=== PATIENT | female | born 1980 ===

== ENCOUNTER → 2018-02-20 | Outpatient (REF) | payer OTHER | PROVIDERS: ATTEND Family Medicine | DX: R10.2 Pelvic and perineal pain (principal) | CPT/HCPCS: 81001 ==

== ENCOUNTER → 2018-04-28 | Outpatient (CLI) | payer OTHER ==
[~2018-04-28] MED LIST: PREN-127 PO
[2018-04-28 10:06] LABS: PLATELET COUNT, AUTOMATED 193 K/uL (150-450)
== END ==
LOC: LAB 08:50
PROVIDERS: ATTEND Advanced Practice Midwife
DX: O09.521 Supervision of elderly multigravida, first trimester (principal); R82.79 Other abnormal findings on microbiological examination of urine
CPT/HCPCS: 36415; 81001; 85025; 86592; 86703; 86762; 86787; 86850; 86900; 86901; 87088; 87340

== ENCOUNTER → 2018-05-08 | Outpatient (CLI) | payer OTHER | LOC: LAB 07:52 | PROVIDERS: ATTEND Student in an Organized Health Care Education/Training Program | DX: O09.521 Supervision of elderly multigravida, first trimester (principal) | CPT/HCPCS: 87491; 87591 ==

== ENCOUNTER → 2018-07-27 | Outpatient (CLI) | payer OTHER ==
[~2018-07-27] MED LIST changes: +CLOB15OI16 TP
--- NOTE | 2018-07-27 15:47 | RADIOLOGY IMAGING REPORT ---
[facility] PATIENT NAME: Lana Issa : 1980 MR: [id number] V: [id number] EXAM DATE: ORDERING PHYSICIAN: JOLENE CERDA TECHNOLOGIST: [place] [facility] [place] Issa : 1980 Visit/Account:[id number] Date of Sevice: 07/27/2018 EXAMINATION: Transabdominal OB Ultrasound >14 wks with Anatomic Survey 07/27/2018 10:45 AM History: anatomical KAE 12/17/18 COMPARISON: None FINDINGS: Intrauterine gestations: one presentation: Variable heart rate: 160 bpm Amniotic fluid index: 11.5 cm Largest amniotic fluid pocket 3.5 cm Placenta: Posterior without previa. Placental cord insertion is normal. Uterus: gravid, otherwise normal Maternal adnexa: negative Cervix: closed Gestational Parameters: BPD: 4.3 cm 19 weeks 1 day, 30th percentile HC: 16.5 cm 19 weeks 2 days, 26th percentile AC: 13.8 cm 19 weeks 2 days, 34th percentile FL: 3.0 cm 19 weeks 3 days, 34th percentile Average ultrasound age (AUA): 19 weeks 2 days Estimated gestational age by LMP: 19 weeks 4 days Estimated weight (EFW): 284 grams +/- 42 grams EFW for LMP percentile: 29 Anatomic Survey: Intracranial structures, nose and lips, 4-chamber heart and outflow tracts, stomach, kidneys, urinary bladder, spine, 3-vessel cord and cord insertion are unremarkable. Two upper and two lower extremiti es visualized. IMPRESSION: 1. Single live intrauterine gestation; estimated ultrasound age 19 weeks 2 days (KAE 12/19/2018) whic h correlates well with expected dates.. 2. Unremarkable anatomic survey. Report Dictated By: Bora Smith MD at 07/27/2018 3:38 PM Report E-Signed By: Bora Smith MD at 07/27/2018 3:41 PM WSN:JOSE J
== END ==
LOC: RAD 07:53
PROVIDERS: ATTEND Obstetrics & Gynecology
DX: Z02.9 Encounter for administrative examinations, unspecified (principal)

== ENCOUNTER → 2018-09-20 | Outpatient (CLI) | payer OTHER ==
[~2018-09-20] MED LIST changes: +DIPH0.5S2 IM
[2018-09-20 10:42] LABS: PLATELET COUNT, AUTOMATED 160 K/uL (150-450)
== END ==
LOC: LAB 09:14
PROVIDERS: ATTEND Student in an Organized Health Care Education/Training Program
DX: Z34.92 Encounter for supervision of normal pregnancy, unspecified, second trimester (principal)
CPT/HCPCS: 36415; 82950; 85025